=== PATIENT | male | born 1995 | race Two or more races ===

== ENCOUNTER 2021-08-29 08:39 | Inpatient (IN) | payer MEDICAID ==
[~2021-08-29] VITALS: Ht 165.1 cm; Wt 97.6 kg
[2021-08-29] MEDS ORDERED: ACETAMINOPHEN 500 MG TAB PO ONE (09:00)
[2021-08-29] MEDS ORDERED: SODIUM CHLORIDE 0.9% 1,000 ML IV ONE (09:30)
[2021-08-29 10:08] LABS: Basophils # (auto) 0 10 ^3/uL (0-0.2); Basophils % (auto) 0.6 % (0.0-2.0); Eosinophils # (auto) 0 10 ^3/uL (0-0.8); Hematocrit 46.1 % (41.0-53.0); Hemoglobin 15.7 g/dL (13.5-17.5); Lymphocytes # (auto) 0.9 10 ^3/uL (0.4-5.4); Mean Corpuscular Hemoglobin 29.1 pg (28.0-32.0); Mean Corpuscular Hgb Conc. 34.1 g/dL (32.0-36.0); Mean Corpuscular Volume 85.5 fL (80.0-100.0); Monocytes # (auto) 0.2 10 ^3/uL (0-1.3); Monocytes % (auto) 6.1 % (0.0-12.0); Neutrophils % (auto) 63.3 % (37.0-80.0); Nucleated Red Blood Cells % 0.9 %; Red Blood Cells 5.39 10^6/uL (4.5-5.90); Red Cell Distribution Width 13.2 % (11.8-14.3); White Blood Cell 3.1 10^3/uL (4.4-10.8)
[2021-08-29 10:20] LABS: Urine Bacteria NONE SEEN /hpf (None Seen); Urine Blood TRACE /uL (Negative); Urine Mucus FEW (None Seen); Urine WBC 3 /hpf (0 - 3)
[2021-08-29 10:27] LABS: Potassium 3.8 mmol/L (3.5-5.1)
[2021-08-29 10:30] LABS: Lactic Acid w/Reflex 2.4 mmol/L (0.4-2.0)
[2021-08-29 10:35] LABS: Albumin 3.6 g/dL (3.4-5.0); BUN/Creatinine Ratio 8.8; Bilirubin, Total 0.6 mg/dL (0.2-1.0); Calcium 8.3 mg/dL (8.5-10.1); Total Protein 7.8 g/dL (6.4-8.2)
[2021-08-29] MEDS ORDERED: ZINC SULFATE 220mg CAP or TAB PO ONE (11:15)
[2021-08-29] MEDS ORDERED: ASCORBIC ACID 500 MG TAB PO ONE (11:15)
[2021-08-29] MEDS ORDERED: CHOLECALCIFEROL (VITD3) 2,000 UNIT CAP/TAB PO ONE (11:15)
[2021-08-29] MEDS ORDERED: AZITHROMYCIN 500MG/ 250ML 250 ML IV ONE (11:15)
[2021-08-29] MEDS ORDERED: DexAMETHasone SOD PHOS 10MG/1ML VIAL INJ IV ONE (11:15)
[2021-08-29] MEDS ORDERED: hydrOXYchloroQUINE SULFATE 200 MG TAB PO ONE (11:15)
[2021-08-29] MEDS ORDERED: cefTRIAXone 1GM/50ML D5W 50 ML IV ONE (11:15)
[2021-08-29] MEDS ORDERED: ACETAMINOPHEN 325 MG TAB PO PRN (11:30)
[2021-08-29] MEDS ORDERED: HYDROcodone-ACET 5/325MG TAB PO PRN (11:30)
[2021-08-29] MEDS ORDERED: DOCUSATE SOD 100 MG CAP PO PRN (11:30)
[2021-08-29] MEDS ORDERED: REMDESIVIR PER PHARMACY 0 ML IV SCH (11:45)
[2021-08-29] MEDS: ALBUTEROL SULF HFA 90MCG INH 200DOSE IN SCH ×2 (12:00→19:25)
[2021-08-29] MEDS: SODIUM CHLORIDE 0.9% 1,000 ML IV SCH ×2 (13:33→21:16)
[2021-08-29 14:00] VITALS: BP 112/67
[2021-08-29] MEDS ORDERED: REMDESIVIR 200 MG in NS 210ml LOADING DOSE ADULT IV ONE (18:00)
[2021-08-29] MEDS ORDERED: ALBUAER3 IN (18:30)
[2021-08-29] MEDS: DOXYCYCLINE 100 MG TAB/CAP PO SCH (21:16)
[2021-08-29 21:59] VITALS: BP 125/68
[2021-08-30 05:02] VITALS: BP 115/68
[2021-08-30] MEDS: ALBUTEROL SULF HFA 90MCG INH 200DOSE IN SCH ×3 (05:57→18:00)
[2021-08-30 06:51] LABS: Basophils # (auto) 0 10 ^3/uL (0-0.2); Basophils % (auto) 0.2 % (0.0-2.0); Eosinophils # (auto) 0 10 ^3/uL (0-0.8); Hematocrit 40.2 % (41.0-53.0); Lymphocytes # (auto) 0.8 10 ^3/uL (0.4-5.4); Lymphocytes % (auto) 23.6 % (10.0-50.0); Mean Corpuscular Hemoglobin 29.8 pg (28.0-32.0); Mean Corpuscular Hgb Conc. 34.9 g/dL (32.0-36.0); Mean Corpuscular Volume 85.4 fL (80.0-100.0); Monocytes # (auto) 0.2 10 ^3/uL (0-1.3); Monocytes % (auto) 5.9 % (0.0-12.0); Neutrophils # (auto) 2.5 10 ^3/uL (1.6-8.6); Neutrophils % (auto) 70.3 % (37.0-80.0); Nucleated Red Blood Cells % 0.1 %; Red Cell Distribution Width 13.3 % (11.8-14.3); White Blood Cell 3.5 10^3/uL (4.4-10.8)
[2021-08-30 07:08] LABS: Calcium 7.8 mg/dL (8.5-10.1); Potassium 4.3 mmol/L (3.5-5.1)
[2021-08-30 07:12] LABS: BUN/Creatinine Ratio 13.6; Bilirubin, Total 0.4 mg/dL (0.2-1.0); Total Protein 6.3 g/dL (6.4-8.2)
[2021-08-30 08:00] VITALS: BP 103/66
[2021-08-30] MEDS: DexAMETHasone SOD PHOS 10MG/1ML VIAL INJ IV SCH (08:24)
[2021-08-30] MEDS: ZINC SULFATE 220mg CAP or TAB PO SCH (08:24)
[2021-08-30] MEDS: PANTOPRAZOLE 40 MG TAB PO SCH (08:25)
[2021-08-30] MEDS: ASCORBIC ACID 500 MG TAB PO SCH (08:25)
[2021-08-30] MEDS: DOXYCYCLINE 100 MG TAB/CAP PO SCH ×2 (08:25→20:50)
[2021-08-30] MEDS: CHOLECALCIFEROL (VITD3) 2,000 UNIT CAP/TAB PO SCH (08:26)
[2021-08-30] MEDS: ENOXAPARIN SOD 40 MG/0.4 ML SYRINGE SC SCH (08:26)
[2021-08-30 12:13] VITALS: BP 109/73
[2021-08-30] MEDS: REMDESIVIR 100mg 100 MG in SODIUM CHL 0.9% 230 ML IV SCH (14:57)
[2021-08-30 17:07] VITALS: BP 118/73
[2021-08-30] MEDS ORDERED: ALBUTEROL SULF HFA 90MCG INH 200DOSE IN PRN (21:00)
[2021-08-30 22:27] VITALS: BP 107/59
[2021-08-31 05:00] VITALS: BP 99/52
[2021-08-31 08:03] LABS: Basophils # (auto) 0 10 ^3/uL (0-0.2); Basophils % (auto) 0.1 % (0.0-2.0); Eosinophils # (auto) 0 10 ^3/uL (0-0.8); Hematocrit 43.1 % (41.0-53.0); Lymphocytes # (auto) 1.2 10 ^3/uL (0.4-5.4); Mean Corpuscular Hemoglobin 29.7 pg (28.0-32.0); Mean Corpuscular Hgb Conc. 34.7 g/dL (32.0-36.0); Mean Corpuscular Volume 85.5 fL (80.0-100.0); Monocytes # (auto) 0.4 10 ^3/uL (0-1.3); Monocytes % (auto) 6.4 % (0.0-12.0); Neutrophils % (auto) 72.5 % (37.0-80.0); Nucleated Red Blood Cells % 0.1 %; Red Blood Cells 5.04 10^6/uL (4.5-5.90); Red Cell Distribution Width 13.2 % (11.8-14.3); White Blood Cell 5.5 10^3/uL (4.4-10.8)
[2021-08-31 08:12] LABS: Calcium 8.5 mg/dL (8.5-10.1); Potassium 4.2 mmol/L (3.5-5.1)
[2021-08-31 08:18] LABS: Albumin 3.3 g/dL (3.4-5.0); BUN/Creatinine Ratio 19.7; Bilirubin, Total 0.3 mg/dL (0.2-1.0); Total Protein 6.9 g/dL (6.4-8.2)
[2021-08-31 09:00] VITALS: BP 108/60
[2021-08-31] MEDS: ZINC SULFATE 220mg CAP or TAB PO SCH (09:23)
[2021-08-31] MEDS: DexAMETHasone SOD PHOS 10MG/1ML VIAL INJ IV SCH (09:23)
[2021-08-31] MEDS: DOXYCYCLINE 100 MG TAB/CAP PO SCH (09:24)
[2021-08-31] MEDS: PANTOPRAZOLE 40 MG TAB PO SCH (09:24)
[2021-08-31] MEDS: ASCORBIC ACID 500 MG TAB PO SCH (09:24)
[2021-08-31] MEDS: ENOXAPARIN SOD 40 MG/0.4 ML SYRINGE SC SCH (09:25)
[2021-08-31] MEDS: CHOLECALCIFEROL (VITD3) 2,000 UNIT CAP/TAB PO SCH (09:25)
[2021-08-31 13:00] VITALS: BP 119/69
[2021-08-31] MEDS: REMDESIVIR 100mg 100 MG in SODIUM CHL 0.9% 230 ML IV SCH (15:23)
[2021-08-31] MEDS ORDERED: ZINC220C8 PO (16:34)
[2021-08-31] MEDS ORDERED: DEXA6TAB6 PO (16:34)
[2021-08-31] MEDS ORDERED: DOX100T PO (16:34)
[2021-08-31] MEDS ORDERED: ALBUAER3 IN (16:34)
[2021-08-31] MEDS ORDERED: CHOL1CAP47 PO (16:34)
[2021-08-31] MEDS ORDERED: ASCO500T11 PO (16:34)
[2021-08-31 17:00] VITALS: BP 121/68
[2021-08-31 20:28] VITALS: BP 121/72
[2021-08-31 20:40] VITALS: BP 121/72
== END 2021-08-31 21:21 | disposition home health service (06) | DRG 720 ==
LOC: ER 08:39 → TELE 11:29 → TELE-EAST 18:09
PROVIDERS: ADMIT Internal Medicine; ATTEND Internal Medicine
PROC: XW033E5 Introduction of Remdesivir Anti-infective into Peripheral Vein, Percutaneous Approach, New Technology Group 5 (ICD-10-PCS; principal; 2021-08-29)
DX: A41.89 Other specified sepsis (principal); J96.01 Acute respiratory failure with hypoxia; J12.82 Pneumonia due to coronavirus disease 2019; U07.1 COVID-19; E66.01 Morbid (severe) obesity due to excess calories; J45.901 Unspecified asthma with (acute) exacerbation; R79.89 Other specified abnormal findings of blood chemistry; Z68.34 Body mass index [BMI] 34.0-34.9, adult; Z88.8 Allergy status to other drugs, medicaments and biological substances
CPT/HCPCS: 36415; 36600; 71045; 80053; 81001; 82728; 82805; 83605; 85025; 85379; 87040; 93970; 94640; 96361; 96365; G0378; J0696; J1100

== ENCOUNTER 2022-06-25 20:55 | Emergency (ER) | payer MEDICAID ==
[~2022-06-25] VITALS: Ht 165.1 cm; Wt 97.0 kg
[~2022-06-25 20:55] MED LIST: ALBUAER3 IN; ASCO500T11 PO; CHOL1CAP47 PO; DEXA6TAB6 PO; DOX100T PO; ZINC220C8 PO
[2022-06-25 21:02] VITALS: BP 154/95
[2022-06-26] MEDS ORDERED: AMOX-277 PO (07:05)
[2022-06-26] MEDS ORDERED: PRED20TA2 PO (07:05)
[2022-06-26] MEDS ORDERED: methylPREDNISolone SOD SUCC 125 MG/2 ML VL IM ONE (07:15)
[2022-06-26] MEDS ORDERED: IPRATROPIUM BROM 0.5 MG/2.5ML INH SOL NEB ONE (07:15)
[2022-06-26] MEDS ORDERED: ALBUTEROL SULF 2.5 MG/0.5ML(0.5%) NEB SOLN NEB ONE (07:15)
== END 2022-06-26 07:47 | disposition home or self-care (01) ==
LOC: ER 20:55
DX: J45.909 Unspecified asthma, uncomplicated (principal)
CPT/HCPCS: 94640; 96372; 99283; J2930; J7644

== ENCOUNTER 2022-07-20 11:04 | Emergency (ER) | payer MEDICAID ==
[~2022-07-20] VITALS: Ht 165.1 cm; Wt 90.9 kg
[~2022-07-20 11:04] MED LIST changes: +AMOX-277 PO; +PRED20TA2 PO
[2022-07-20] MEDS ORDERED: IPRATROPIUM BROM 0.5 MG/2.5ML INH SOL NEB ONE (12:45)
[2022-07-20] MEDS ORDERED: methylPREDNISolone SOD SUCC 125 MG/2 ML VL IM ONE (12:45)
[2022-07-20] MEDS ORDERED: ALBUTEROL SULF 2.5 MG/0.5ML(0.5%) NEB SOLN NEB ONE (12:45)
[2022-07-20 12:54] VITALS: BP 150/99
[2022-07-20] MEDS ORDERED: PRED20TA2 PO (14:14)
== END 2022-07-20 14:20 | disposition home or self-care (01) ==
LOC: ER 11:04
DX: J45.901 Unspecified asthma with (acute) exacerbation (principal)
CPT/HCPCS: 71045; 94640; 96372; 99283; J2930; J7644